=== PATIENT | female | born 1995 | race Native Hawaiian/Other Pacific Islander ===

== ENCOUNTER 2021-03-23 01:02 | Emergency (ER) | payer OTHER ==
[~2021-03-23] VITALS: Ht 170.2 cm; Wt 49.9 kg
[2021-03-23 01:18] VITALS: BP 118/72; TEMP 98.5
== END 2021-03-23 02:12 | disposition home or self-care (01) ==
LOC: ED 01:02
DX: M75.52 Bursitis of left shoulder (principal); Y93.72 Activity, wrestling; Y92.89 Other specified places as the place of occurrence of the external cause
CPT/HCPCS: 96372; 99283; J1885; J2930

== ENCOUNTER 2021-07-15 17:53 | Emergency (ER) | payer OTHER ==
[~2021-07-15] VITALS: Ht 170.2 cm; Wt 49.9 kg
[2021-07-15 18:54] LABS: PLATELET COUNT 208 K/uL (152-353)
[2021-07-15 19:06] LABS: POTASSIUM 4.1 mmol/L (3.6-5.2); SODIUM 140 mmol/L (136-145)
[2021-07-15 19:30] LABS: PARTIAL THROMBOPLASTIN TIME 26.2 SECONDS (24.5-33.6)
[2021-07-15 20:30] VITALS: BP 109/70; TEMP 98.8
== END 2021-07-15 20:30 | disposition home or self-care (01) ==
LOC: ED 17:53
PROVIDERS: Hospitalist
DX: R56.9 Unspecified convulsions (principal)
CPT/HCPCS: 80053; 80307; 80320; 81000; 82550; 83880; 84484; 85027; 85610; 85730; 99283

== ENCOUNTER 2022-03-01 11:18 | Emergency (ER) | payer OTHER ==
[~2022-03-01] VITALS: Ht 170.2 cm; Wt 49.9 kg
[2022-03-01 12:56] VITALS: BP 110/68; TEMP 98
== END 2022-03-01 12:56 | disposition home or self-care (01) ==
LOC: ED 11:18
DX: J11.1 Influenza due to unidentified influenza virus with other respiratory manifestations (principal); F17.290 Nicotine dependence, other tobacco product, uncomplicated; Z20.822 Contact with and (suspected) exposure to COVID-19
CPT/HCPCS: 87502; 87635; 99283; U0003